=== PATIENT | female | born 1940 | race Caucasian/White ===

== ENCOUNTER 2016-07-11 10:44 | Observation (INO) | payer BC, MEDICARE ==
[2016-07-11] MEDS ORDERED: ASPIRIN 81 MG TABLET, CHEWABLE PO ONE (11:11)
--- NOTE | 2016-07-11 11:26 | ER Document Report ---
ED Medical Screen (RME) - General Mode of Arrival: Ambulatory Information source: Patient TRAVEL OUTSIDE OF THE U.S[place] IN LAST 30 DAYS: No - HPI Patient complains to provider of: Left upper extremity pain Onset: Other - 3-4 weeks ago Onset/Duration: Intermittent Associated Symptoms: Other - see notes above <CLAUDIA CARLIN - Last Filed: 07/11/16 11:11> <SUE SHELDON - Last Filed: 07/11/16 13:25> - General Chief Complaint: Arm Pain Stated Complaint: LEFT ARM PAIN Notes: 76 year old female with history of an KS and 2 stents (2012) presents to the ED complaining of left upper extremity pain from her left shoulder to her left hand that has been intermitted for the past 3-4 weeks. Patient reports that she last felt the pain around 0800 this morning. Patient called her [facility] in [place] and was advised to come to the ED. Patient denies any recent exertion with her left upper extremity. Patient denies chest pain or shortness of breath. Patient explains that 4 years ago when she had her KS she did not have any CP, but left shoulder pain that radiated to her left jaw. (CLAUDIA CARLIN) - Related Data Allergies/Adverse Reactions: azithromycin [Azithromycin] Allergy (Verified 07/11/16 10:47) Penicillins Allergy (Verified 07/11/16 10:47) Home Medications: Current Home Medications Aspirin [Aspirin EC] 81 mg PO DAILY 07/11/16 [History] Atorvastatin Calcium 10 mg PO DAILY 07/11/16 [History] Cyanocobalamin (Vitamin B-12) [Vitamin B12] mcg PO 07/11/16 [History] Losartan Potassium 100 mg PO DAILY 07/11/16 [History] Metoprolol Succinate 25 mg PO DAILY 07/11/16 [History] Past Medical History - General Information source: Patient - Past Medical History Cardiac Medical History: Reports: Hx Heart Attack - 2012, Hx Hypertension Renal/ Medical History: Denies: Hx Peritoneal Dialysis Past Surgical History: Reports: Hx Cardiac Catheterization - stent x2 2012, Hx Cholecystectomy - Immunizations Hx Diphtheria, Pertussis, Tetanus Vaccination: Yes <CLAUDIA CARLIN - Last Filed: 07/11/16 11:11> Review of Systems - Review of Systems Constitutional: No symptoms reported EENT: No symptoms reported Cardiovascular: No symptoms reported. denies: Chest pain Respiratory: No symptoms reported. denies: Short of breath Gastrointestinal: No symptoms reported Genitourinary: No symptoms reported Female Genitourinary: No symptoms reported Musculoskeletal: See HPI, Other - left shoulder pain that radiates down to left hand. Skin: No symptoms reported Hematologic/Lymphatic: No symptoms reported Neurological/Psychological: No symptoms reported -: Yes All other systems reviewed and negative <CLAUDIA CARLIN - Last Filed: 07/11/16 11:11> Physical Exam - General General appearance: Alert In distress: None - Respiratory Respiratory status: No respiratory distress - Extremities General upper extremity: Normal ROM. No: Normal inspection - see arm exam below General lower extremity: Normal inspection, Normal ROM Arm: Tender - reproducible tenderness to palpation over the left tricep and proximal bicep.. No: Normal <CLAUDIA CARLIN - Last Filed: 07/11/16 11:11> Course <CLAUDIA CARLIN - Last Filed: 07/11/16 11:11> - Laboratory Result Diagrams: 07/11/16 11:47 07/11/16 11:47 <SUE SHELDON - Last Filed: 07/11/16 13:25> - Re-evaluation Re-evalutation: 07/11/16 13:15 I personally performed the services described in the documentation, reviewed and edited the documentation which was dictated to the scribe in my presence, and it accurately records my words and actions. (SUE SHELDON) - Vital Signs Vital signs: Temp Pulse Resp BP Pulse Ox 99.3 F 90 17 124/55 L 95 07/11/16 10:49 07/11/16 10:49 07/11/16 12:01 07/11/16 12:01 07/11/16 12:01 - Laboratory Laboratory results interpreted by me: 07/11/16 07/11/16 11:47 11:47 RDW 14.1 H BUN 23 H Glucose 115 H Total Bilirubin 1.8 H Scribe Documentation - Scribe Written by Scribe:: Judy Freedman, 07/11/2016 1132 acting as scribe for :: Ko <CLAUDIA CARLIN - Last Filed: 07/11/16 11:11>
[2016-07-11 11:58] LABS: ABSOLUTE BASOPHILS # (AUTO) 0.1 10^3/uL (0.0-0.2); ABSOLUTE EOSINOPHILS # (AUTO) 0.1 10^3/uL (0.0-0.6); ABSOLUTE LYMPHOCYTES (AUTO) 1.1 10^3/uL (0.5-4.7); ABSOLUTE MONOCYTES (AUTO) 0.4 10^3/uL (0.1-1.4); ABSOLUTE NEUT (AUTO) 4.7 10^3/uL (1.7-8.2); BASOPHILS % (AUTO) 1.1 % (0-2); EOSINOPHILS % (AUTO) 1.1 % (0-6); HEMOGLOBIN 13.8 g/dL (12.0-15.5); HGB HCT DIFFERENCE 0.4; LYMPHOCYTES % (AUTO) 17.9 % (13-45); MEAN CORPUSCULAR HEMOGLOBIN 28.5 pg (27.0-33.4); MEAN CORPUSCULAR HGB CONC 33.6 g/dL (32.0-36.0); MEAN CORPUSCULAR VOLUME 85 fl (80-97); MONOCYTES % (AUTO) 6.5 % (3-13); RED BLOOD COUNT 4.82 10^6/uL (3.72-5.28); RED CELL DISTRIBUTION WIDTH 14.1 % (11.5-14.0); SEGMENTED NEUTROPHILS % (AUTO) 73.4 % (42-78); WHITE BLOOD COUNT 6.3 10^3/uL (4.0-10.5)
[2016-07-11 12:04] LABS: PROTHROMBIN TIME 12.4 SEC (11.4-15.4)
--- NOTE | 2016-07-11 12:10 | ER Document Report ---
ED General - General Chief Complaint: Arm Pain Stated Complaint: LEFT ARM PAIN Mode of Arrival: Ambulatory Information source: Patient Notes: 76-year-old female history of [place] to previous cardiac stents presents with complaints of left arm pain going down for 2-3 minutes at a time intermittently over the past 2 weeks. Patient denies any shortness breath difficult to breathing admits to one episode of nausea as well as swelling patient is followed by cardiology in the burn Dr. Mejia TRAVEL OUTSIDE OF THE [place].S[place] IN LAST 30 DAYS: No - HPI Onset: Other Onset/Duration: Intermittent Quality of pain: Achy Severity: Mild Pain Level: 1 Associated symptoms: Other Exacerbated by: Denies Relieved by: Denies Similar symptoms previously: No Recently seen / treated by doctor: No - Related Data Allergies/Adverse Reactions: azithromycin [Azithromycin] Allergy (Verified 07/11/16 10:47) Penicillins Allergy (Verified 07/11/16 10:47) Home Medications: Current Home Medications Aspirin [Aspirin EC] 81 mg PO DAILY 07/11/16 [History] Atorvastatin Calcium 10 mg PO DAILY 07/11/16 [History] Cyanocobalamin (Vitamin B-12) [Vitamin B12] mcg PO 07/11/16 [History] Losartan Potassium 100 mg PO DAILY 07/11/16 [History] Metoprolol Succinate 25 mg PO DAILY 07/11/16 [History] Past Medical History - General Information source: Patient - Social History Smoking Status: Never Smoker Cigarette use (# per day): No Chew tobacco use (# tins/day): No Smoking Education Provided: No Family History: Reviewed & Not Pertinent Patient has suicidal ideation: No Patient has homicidal ideation: No - Past Medical History Cardiac Medical History: Reports: Hx Heart Attack - 2012, Hx Hypertension Renal/ Medical History: Denies: Hx Peritoneal Dialysis Past Surgical History: Reports: Hx Cardiac Catheterization - stent x2 2012, Hx Cholecystectomy - Immunizations Hx Diphtheria, Pertussis, Tetanus Vaccination: Yes Hx Pneumococcal Vaccination: 04/09/10 Review of Systems - Review of Systems Notes: REVIEW OF SYSTEMS: CONSTITUTIONAL : admits to diaphoresis EENT: Denies eye, ear, throat, or mouth pain or symptoms. Denies nasal or sinus congestion or discharge. Denies throat, tongue, or mouth swelling or difficulty swallowing. CARDIOVASCULAR: Denies chest pain. Denies palpitations or racing or irregular heart beat. Denies ankle edema. RESPIRATORY: Denies cough, cold, or chest congestion. Denies shortness of breath, difficulty breathing, or wheezing. GASTROINTESTINAL: admits to nausea GENITOURINARY: Denies difficulty urinating, painful urination, burning, frequency, blood in urine, or discharge. FEMALE GENITOURINARY: Denies vaginal bleeding, heavy or abnormal periods, irregular periods. Denies vaginal discharge or odor. MUSCULOSKELETAL: Denies back or neck pain or stiffness. Denies joint pain or swelling. SKIN: Denies rash, lesions or sores. HEMATOLOGIC : Denies easy bruising or bleeding. LYMPHATIC: Denies swollen, enlarged glands. NEUROLOGICAL: left arm pain PSYCHIATRIC: Denies anxiety or stress. Denies depression, suicidal ideation, or homicidal ideation. ALL OTHER SYSTEMS REVIEWED AND NEGATIVE. Dictation was performed using [email or web address] voice recognition software PHYSICAL EXAMINATION: GENERAL: Well-appearing, well-nourished and in no acute distress. HEAD: Atraumatic, normocephalic. EYES: Pupils equal round and reactive to light, extraocular movements intact, sclera anicteric, conjunctiva are normal. ENT: Nares patent, oropharynx clear without exudates. Moist mucous membranes. NECK: Normal range of motion, supple without lymphadenopathy LUNGS: Breath sounds clear to auscultation bilaterally and equal. No wheezes rales or rhonchi. HEART: Regular rate and rhythm without murmurs ABDOMEN: Soft, nontender, nondistended abdomen. No guarding, no rebound. No masses appreciated. Musculoskeletal: Normal range of motion, no pitting or edema. No cyanosis. NEUROLOGICAL: Cranial nerves grossly intact. Normal speech, normal gait. Normal sensory, motor exams PSYCH: Normal mood, normal affect. SKIN: Warm, Dry, normal turgor, no rashes or lesions noted. Physical Exam - Vital signs Vitals: Temp Pulse Resp BP Pulse Ox 99.3 F 90 20 156/72 H 98 07/11/16 10:49 07/11/16 10:49 07/11/16 10:49 07/11/16 10:49 07/11/16 10:49 Course - Re-evaluation Re-evalutation: 07/11/16 12:10 Lab work imaging pending 07/11/16 13:26 Lab work imaging note no significant abnormality, patient will require an ACS rule out as she is otherwise stable. Patient admitted to hospitalist service with repeat enzymes expected patient has received full dose aspirin - Vital Signs Vital signs: Temp Pulse Resp BP Pulse Ox 99.3 F 90 17 124/55 L 95 07/11/16 10:49 07/11/16 10:49 07/11/16 12:01 07/11/16 12:01 07/11/16 12:01 - Laboratory Result Diagrams: 07/11/16 11:47 07/11/16 11:47 Laboratory results interpreted by me: 07/11/16 07/11/16 11:47 11:47 RDW 14.1 H BUN 23 H Glucose 115 H Total Bilirubin 1.8 H - Diagnostic Test Radiology reviewed: Image reviewed, Reports reviewed - EKG Interpretation by Me EKG shows normal: Sinus rhythm, [place], Intervals, QRS Complexes Discharge - Discharge Clinical Impression: Pain of left upper extremity Coronary artery disease Qualifiers: Coronary Disease-Associated Artery/Lesion type: unspecified vessel or lesion type [place] vs. transplanted heart: [place] heart Associated angina: without angina Qualified Code(s): I25.10 - Atherosclerotic heart disease of [place] coronary artery without angina pectoris Condition: Stable Disposition: ADMITTED OBSERVATION Admitting Provider: Hospitalist Unit Admitted: Telemetry
[2016-07-11 12:23] LABS: ALANINE AMINOTRANSFERASE 29 U/L (9-52); ALKALINE PHOSPHATASE 105 U/L (38-126); ANION GAP 14 (5-19); ASPARTATE AMINO TRANSFERASE 23 U/L (14-36); BILIRUBIN,DIRECT 0.2 mg/dL (0.0-0.4); BILIRUBIN,TOTAL 1.8 mg/dL (0.2-1.3); BLOOD UREA NITROGEN 23 mg/dL (7-20); CALCIUM 9.4 mg/dL (8.4-10.2); CARBON DIOXIDE 23 mmol/L (22-30); CHLORIDE 103 mmol/L (98-107); CREATINE KINASE 73 U/L (30-135); CREATININE RESULT 0.87 mg/dL (0.52-1.25); GLUCOSE 115 mg/dL (75-110); POTASSIUM 4.6 mmol/L (3.6-5.0); TOTAL PROTEIN 6.8 g/dL (6.3-8.2)
[2016-07-11 12:35] LABS: CREATINE KINASE MB 0.64 ng/mL (<4.55)
[2016-07-11 12:36] LABS: TROPONIN I < 0.012 ng/mL
--- NOTE | 2016-07-11 13:11 | EKG REPORT ---
SEVERITY:- ABNORMAL ECG - SINUS RHYTHM LEFT ANTERIOR FASCICULAR BLOCK : Confirmed by: Rebeka Tucker MD 11-Jul-2016 13:09:33
--- NOTE | 2016-07-11 17:08 | PDOC H&P ---
History of Present Illness Admission Date/PCP: 07/11/16 13:51 Dr. Jose Villa Outpatient mainframe systems programmer: Dr. Bertrand Patient complains of: Left arm pain History of Present Illness: FATMATA WORKMAN is a 76 year old female with a past medical history of coronary artery disease. She presented to the emergency department with a chief complaint of left arm pain. The patient has a history of [place] to previous cardiac stents presents with complaints of left arm pain going down for 2-3 minutes at a time intermittently over the past 2 weeks. The patient also admits to intermittent nausea. Patient denies any shortness breath difficult to breathing admits to one episode of nausea as well as swelling patient is followed by cardiology in the burn Dr. Mejia. The patient last had a nuclear stress test 6 months ago. The patient's last heart catheterization was in 2012 when she was stented. MEDICATIONS: The medications listed in this document may have been auto- populated from previous contact and may not been verified or reconciled. This may not be an accurate reflection of the patient's home medication(s); however, authors are unable to edit or delete the medications listed in this document as "home medications". Past Medical History Cardiac Medical History: Reports: Myocardial Infarction - 2013, Hyperlipidema, Hypertension Past Surgical History Past Surgical History: Reports: Cardiac Catheterization - stent x2 2013, Cholecystectomy Social History Information Source: Patient Occupation: Retired Lives with: Alone Smoking Status: Current Every Day Smoker Cigarettes Packs Per Day: 0.3 Frequency of Alcohol Use: None Hx Recreational Drug Use: No Drugs: None Hx Prescription Drug Abuse: No - Advance Directive Resuscitation Status: Full Code Surrogate healthcare decision maker:: Salena Workman Family History Family History: CAD, Hypertension Parental Family History Reviewed: Yes Children Family History Reviewed: Yes Sibling(s) Family History Reviewed.: Yes Medication/Allergy Home Medications: Aspirin [Aspirin EC] 81 mg PO DAILY 07/11/16 Atorvastatin Calcium 10 mg PO DAILY 07/11/16 Cyanocobalamin (Vitamin B-12) [Vitamin B12] mcg PO 07/11/16 Losartan Potassium 100 mg PO DAILY 07/11/16 Metoprolol Succinate 25 mg PO DAILY 07/11/16 Allergies/Adverse Reactions: azithromycin [Azithromycin] Allergy (Verified 07/11/16 10:47) Penicillins Allergy (Verified 07/11/16 10:47) Review of Systems Constitutional: ABSENT: chills, fever(s), headache(s), weight gain, weight loss Eyes: ABSENT: visual disturbances Ears: ABSENT: hearing changes Cardiovascular: ABSENT: chest pain, dyspnea on exertion, edema, orthropnea, palpitations Respiratory: ABSENT: cough, hemoptysis Gastrointestinal: PRESENT: nausea. ABSENT: abdominal pain, constipation, diarrhea, hematemesis, hematochezia, vomiting Genitourinary: ABSENT: dysuria, hematuria Musculoskeletal: PRESENT: other - Left arm pain. ABSENT: joint swelling Integumentary: ABSENT: rash, wounds Neurological: ABSENT: abnormal gait, abnormal speech, confusion, dizziness, focal weakness, syncope Psychiatric: ABSENT: anxiety, depression, homidical ideation, suicidal ideation Endocrine: ABSENT: cold intolerance, heat intolerance, polydipsia, polyuria Hematologic/Lymphatic: ABSENT: easy bleeding, easy bruising Physical Exam Vital Signs: Temp Pulse Resp BP Pulse Ox 98.3 F 84 17 117/45 L 99 07/11/16 15:30 07/11/16 15:30 07/11/16 15:30 07/11/16 15:30 07/11/16 15:30 General appearance: PRESENT: no acute distress, cooperative, well-developed, well-nourished Head exam: PRESENT: atraumatic, normocephalic Eye exam: PRESENT: conjunctiva pink, EOMI, PERRLA. ABSENT: scleral icterus Ear exam: PRESENT: normal external ear exam Mouth exam: PRESENT: moist, tongue midline Neck exam: ABSENT: carotid bruit, JVD, lymphadenopathy, thyromegaly Respiratory exam: PRESENT: clear to auscultation [place], symmetrical, unlabored. ABSENT: rales, rhonchi, tachypnea, wheezes Cardiovascular exam: PRESENT: RRR. ABSENT: diastolic murmur, rubs, systolic murmur Pulses: PRESENT: normal dorsalis pedis pul Vascular exam: PRESENT: normal capillary refill GI/Abdominal exam: PRESENT: normal bowel sounds, soft. ABSENT: distended, guarding, mass, organolmegaly, rebound, tenderness Rectal exam: PRESENT: deferred Extremities exam: PRESENT: full ROM. ABSENT: calf tenderness, clubbing, pedal edema Neurological exam: PRESENT: alert, awake, oriented to person, oriented to place , oriented to time, oriented to situation, CN II-XII grossly intact. ABSENT: motor sensory deficit Psychiatric exam: PRESENT: appropriate affect, normal mood. ABSENT: homicidal ideation, suicidal ideation Skin exam: PRESENT: dry, intact, warm. ABSENT: cyanosis, rash Results Laboratory Results: Labs- Last Values WBC 6.3 10^3/uL (4.0-10.5) 07/11/16 11:47 RBC 4.82 10^6/uL (3.72-5.28) 07/11/16 11:47 Hgb 13.8 g/dL (12.0-15.5) 07/11/16 11:47 Hct 41.0 % (36.0-47.0) 07/11/16 11:47 MCV 85 fl (80-97) 07/11/16 11:47 MCH 28.5 pg (27.0-33.4) 07/11/16 11:47 MCHC 33.6 g/dL (32.0-36.0) 07/11/16 11:47 RDW 14.1 % (11.5-14.0) H 07/11/16 11:47 Plt Count 236 10^3/uL (150-450) 07/11/16 11:47 Seg Neutrophils % 73.4 % (42-78) 07/11/16 11:47 Lymphocytes % 17.9 % (13-45) 07/11/16 11:47 Monocytes % 6.5 % (3-13) 07/11/16 11:47 Eosinophils % 1.1 % (0-6) 07/11/16 11:47 Basophils % 1.1 % (0-2) 07/11/16 11:47 Absolute Neutrophils 4.7 10^3/uL (1.7-8.2) 07/11/16 11:47 Absolute Lymphocytes 1.1 10^3/uL (0.5-4.7) 07/11/16 11:47 Absolute Monocytes 0.4 10^3/uL (0.1-1.4) 07/11/16 11:47 Absolute Eosinophils 0.1 10^3/uL (0.0-0.6) 07/11/16 11:47 Absolute Basophils 0.1 10^3/uL (0.0-0.2) 07/11/16 11:47 PT 12.4 SEC (11.4-15.4) 07/11/16 11:47 INR 0.90 07/11/16 11:47 Sodium 140.0 mmol/L (137-145) 07/11/16 11:47 Potassium 4.6 mmol/L (3.6-5.0) 07/11/16 11:47 Chloride 103 mmol/L (98-107) 07/11/16 11:47 Carbon Dioxide 23 mmol/L (22-30) 07/11/16 11:47 Anion Gap 14 (5-19) 07/11/16 11:47 BUN 23 mg/dL (7-20) H 07/11/16 11:47 Creatinine 0.87 mg/dL (0.52-1.25) 07/11/16 11:47 Est GFR ( Amer) > 60 (>60) 07/11/16 11:47 Est GFR (Non-Af Amer) > 60 (>60) 07/11/16 11:47 Glucose 115 mg/dL (75-110) H 07/11/16 11:47 Calcium 9.4 mg/dL (8.4-10.2) 07/11/16 11:47 Total Bilirubin 1.8 mg/dL (0.2-1.3) H 07/11/16 11:47 Direct Bilirubin 0.2 mg/dL (0.0-0.4) 07/11/16 11:47 Indirect Bilirubin Not Reportable 07/11/16 11:47 Neonat Total Bilirubin Not Reportable 07/11/16 11:47 AST 23 U/L (14-36) 07/11/16 11:47 ALT 29 U/L (9-52) 07/11/16 11:47 Alkaline Phosphatase 105 U/L (38-126) 07/11/16 11:47 Creatine Kinase 73 U/L (30-135) 07/11/16 11:47 CK-MB (CK-2) 0.64 ng/mL (<4.55) 07/11/16 11:47 Troponin I < 0.012 ng/mL 07/11/16 11:47 Total Protein 6.8 g/dL (6.3-8.2) 07/11/16 11:47 Albumin 4.0 g/dL (3.5-5.0) 07/11/16 11:47 Impressions: Chest X-Ray 07/11/16 11:11 IMPRESSION: NO ACUTE RADIOGRAPHIC FINDING IN THE CHEST. Humerus X-Ray 07/11/16 11:11 IMPRESSION: NO RADIOGRAPHIC EVIDENCE OF ACUTE INJURY. Assessment & Plan - Diagnosis (1) Left arm pain Is this a current diagnosis for this admission?: YesPlan: The patient states that this was the same sensation that she had prior to her previous [place]. Will observe the patient continues telemetry unit, obtain serial cardiac enzymes, repeat EKG, and obtain lipid panel in the a.m. will discuss the case with the patient's mainframe systems programmer. (2) Hyperlipidemia Qualifiers: Hyperlipidemia type: pure hypercholesterolemia Qualified Code(s): E78.00 - Pure hypercholesterolemia, unspecified; E78.0 - Pure hypercholesterolemia Is this a current diagnosis for this admission?: YesPlan: Will continue statin but will increase strength for ACS (3) Hypertension Qualifiers: Hypertension type: essential hypertension Qualified Code(s): I10 - Essential (primary) hypertension Is this a current diagnosis for this admission?: YesPlan: Will continue home medications. (4) Obesity Qualifiers: Obesity type: due to excess calories Obesity severity: non-morbid Qualified Code(s): E66.09 - Other obesity due to excess calories Is this a current diagnosis for this admission?: Yes (5) Coronary artery disease Qualifiers: Coronary Disease-Associated Artery/Lesion type: unspecified vessel or lesion type [place] vs. transplanted heart: [place] heart Associated angina: without angina Qualified Code(s): I25.10 - Atherosclerotic heart disease of [place] coronary artery without angina pectoris Is this a current diagnosis for this admission?: YesPlan: Will continue home medications. (6) DVT prophylaxis Is this a current diagnosis for this admission?: YesPlan: Will start subcutaneous heparin - Time Time Spent: 50 to 70 Minutes Medications reviewed and adjusted accordingly: Yes Anticipated discharge: Home Within: within 24 hours Disposition: The patient is a full code. Pending patient's symptomatology and diagnostic findings will reevaluate in the a.m.
[2016-07-11] MEDS ORDERED: CYCLOBENZAPRINE HCL 10 MG TABLET PO ONE (17:30)
[2016-07-11] MEDS: HEPARIN SOD (PORCINE) 5,000 UNIT/ML 1 ML SYRINGE SUBCUT SCH ×2 (17:43→22:21)
[2016-07-11] MEDS ORDERED: ATORVASTATIN CALCIUM 10 MG TABLET PO SCH (22:00)
[2016-07-11] MEDS ORDERED: ATORVASTATIN CALCIUM 40 MG TABLET PO SCH (22:00)
[2016-07-12 05:45] LABS: CHOLESTEROL 125.41 mg/dL (0-200); Direct HDL 61 mg/dL (>40); TRIGLYCERIDES 118 mg/dL (<150)
[2016-07-12 05:55] LABS: DIRECT LDL 37 mg/dL (<100)
[2016-07-12] MEDS: HEPARIN SOD (PORCINE) 5,000 UNIT/ML 1 ML SYRINGE SUBCUT SCH (06:57)
[2016-07-12] MEDS ORDERED: METOPROLOL SUCCINATE 25 MG TAB.SR.24H PO SCH (10:00)
[2016-07-12] MEDS ORDERED: (PENDING PHARMACY ID) (Losartan Potassium [Losartan Potassium] 100 MG) PO SCH (10:00)
[2016-07-12] MEDS ORDERED: ASPIRIN 81 MG TABLET, ENT COATED PO SCH (10:00)
[2016-07-12] MEDS ORDERED: LOSARTAN POTASSIUM 50 MG TABLET PO SCH (10:00)
[2016-07-12 10:42] VITALS: BP 114/48
--- NOTE | 2016-07-12 16:08 | PDOC DISCHARGE SUMMARY ---
General - Admit/Disc Date/PCP Admission Date/Primary Care Provider: 07/11/16 13:51 Discharge Date: 07/12/16 - Additional Information Resuscitation Status: Full Code Home Medications: Aspirin [Aspirin EC] 81 mg PO DAILY 07/11/16 Atorvastatin Calcium 10 mg PO DAILY 07/11/16 Cyanocobalamin (Vitamin B-12) [Vitamin B12] mcg PO 07/11/16 Losartan Potassium 100 mg PO DAILY 07/11/16 Metoprolol Succinate 25 mg PO DAILY 07/11/16 History of Present Illness Patient complains of: Left arm pain and numbness History of Present Illness: FATMATA WORKMAN is a 76 year old female with a past medical history of coronary artery disease. She presented to the emergency department with a chief complaint of left arm pain. The patient has a history of [place] to previous cardiac stents presents with complaints of left arm pain going down for 2-3 minutes at a time intermittently over the past 2 weeks. The patient also admits to intermittent nausea. Patient denies any shortness breath difficult to breathing admits to one episode of nausea as well as swelling patient is followed by cardiology in the [facility] Dr. Mejia. The patient last had a nuclear stress test 6 months ago. The patient's last heart catheterization was in 2012 when she was stented. Hospital Course Hospital Course: Patient was admitted to the telemetry unit, observation status. Serial troponins were obtained. All troponins were less than 0.02. EKG showed no signs of acute ischemia. Patient had undergone stress testing in the last 6 months by her teacher of the hearing impaired and [facility]. We will therefore not repeat the stress test at this time. Patient would like to follow-up with her teacher of the hearing impaired when she is discharged. Pain most likely is musculoskeletal in origin, at times is reproducible. Physical Exam Vital Signs: Temp Pulse Resp BP Pulse Ox 97.8 F 63 14 114/48 L 100 07/12/16 10:35 07/12/16 10:35 07/12/16 10:35 07/12/16 07:37 07/12/16 10:35 Intake & Output 07/11/16 07/12/16 07/13/16 06:59 06:59 06:59 Intake Total 406 Output Total 2 Balance 404 Weight 81 kg General appearance: PRESENT: no acute distress Head exam: PRESENT: atraumatic, normocephalic Eye exam: PRESENT: conjunctiva pink, EOMI, PERRLA. ABSENT: scleral icterus Ear exam: PRESENT: normal external ear exam Mouth exam: PRESENT: moist, tongue midline Neck exam: ABSENT: carotid bruit, JVD, lymphadenopathy, thyromegaly Respiratory exam: PRESENT: clear to auscultation [place]. ABSENT: rales, rhonchi, wheezes Cardiovascular exam: PRESENT: RRR. ABSENT: diastolic murmur, rubs, systolic murmur Pulses: PRESENT: normal dorsalis pedis pul Vascular exam: PRESENT: normal capillary refill GI/Abdominal exam: PRESENT: normal bowel sounds, soft. ABSENT: distended, guarding, mass, organolmegaly, rebound, tenderness Rectal exam: PRESENT: deferred Extremities exam: PRESENT: full ROM. ABSENT: calf tenderness, clubbing, pedal edema Neurological exam: PRESENT: alert, awake, oriented to person, oriented to place , oriented to time, oriented to situation, CN II-XII grossly intact. ABSENT: motor sensory deficit Psychiatric exam: PRESENT: appropriate affect, normal mood. ABSENT: homicidal ideation, suicidal ideation Skin exam: PRESENT: dry, intact, warm. ABSENT: cyanosis, rash Results Laboratory Results: 07/12/16 04:41 Triglycerides 118 Cholesterol 125.41 LDL Cholesterol Direct 37 VLDL Cholesterol 24.0 HDL Cholesterol 61 07/11/16 07/11/16 17:47 23:47 Troponin I < 0.012 0.027 Impressions: Chest X-Ray 07/11/16 11:11 IMPRESSION: NO ACUTE RADIOGRAPHIC FINDING IN THE CHEST. Humerus X-Ray 07/11/16 11:11 IMPRESSION: NO RADIOGRAPHIC EVIDENCE OF ACUTE INJURY. Qualifiers PATEINT BEING DISCHARGED WITH ANY OF THE FOLLOWING DIAGNOSIS?: No Plan Discharge Plan: Home with family. Follow-up with cardiology next available. Time Spent: Less than 30 Minutes
--- NOTE | 2016-07-12 22:08 | EKG REPORT ---
SEVERITY:- BORDERLINE ECG - SINUS RHYTHM ATRIAL PREMATURE COMPLEX BORDERLINE LEFT AXIS DEVIATION LOW VOLTAGE THROUGHOUT : Confirmed by: Rebeka Tucker MD 12-Jul-2016 22:06:11
== END 2016-07-12 11:06 | disposition home or self-care (01) ==
LOC: ER 10:44 → EH 13:51 → 4N 14:59
PROVIDERS: ADMIT Internal Medicine; ATTEND Internal Medicine
DX: R07.9 Chest pain, unspecified (principal); R20.0 Anesthesia of skin; M79.602 Pain in left arm; I25.10 Atherosclerotic heart disease of native coronary artery without angina pectoris; I25.2 Old myocardial infarction; I10 Essential (primary) hypertension; E78.00 Pure hypercholesterolemia, unspecified; F17.210 Nicotine dependence, cigarettes, uncomplicated; E66.09 Other obesity due to excess calories
CPT/HCPCS: 93005 ×2; 99285; 36415 ×2; 82553; 82550; 85025; 85610; 80053; 84484; 80061; 71020; 73060; 93010 ×2; G0378 ×3; A9270 ×4; J1644 ×2; J3490 ×2

== ENCOUNTER 2017-06-06 01:44 | Emergency (ER) | payer MEDICARE ==
[2017-06-06] MEDS ORDERED: ASPIRIN 81 MG TABLET, CHEWABLE PO ONE (02:12)
--- NOTE | 2017-06-06 02:19 | ER Document Report ---
ED Cardiac - General Chief Complaint: Chest Pain Stated Complaint: CHEST PAINS Time Seen by Provider: 06/06/17 01:51 Notes: Patient is a 76-year-old female who comes emergency department chief complaint of chest pain that started at 11 PM tonight. She states that she was sitting up in bed when she started hurting. She states pain is constant, she feels a little bit of nausea with it, she states pain starts in her left mid chest and goes down to below her left breast. She states she has had very little appetite today as well. She denies vomiting, fever, shortness of breath. She has had a mild cough for a few days. She lives alone, comes from home, states she took 3 nitroglycerin without significant change in her symptoms, she also took 81 mg of aspirin. She does not take a blood thinner. She had a heart attack with 2 stents placed in [place] about 6 years ago. She is a former smoker. She states she thinks she had a stress test over a year ago that was "borderline". She has hypertension, hyperlipidemia, but not diabetes. TRAVEL OUTSIDE OF THE [place] IN LAST 30 DAYS: No - Related Data Allergies/Adverse Reactions: azithromycin [Azithromycin] Allergy (Verified 07/11/16 10:47) Penicillins Allergy (Verified 07/11/16 10:47) Past Medical History - General Information source: Patient - Social History Smoking Status: Former Smoker Frequency of alcohol use: None Drug Abuse: None Lives with: Family Family History: CAD, Hypertension Patient has suicidal ideation: No Patient has homicidal ideation: No - Past Medical History Cardiac Medical History: Reports: Hx Heart Attack - 2012, Hx Hypercholesterolemia, Hx Hypertension Renal/ Medical History: Denies: Hx Peritoneal Dialysis Past Surgical History: Reports: Hx Cardiac Catheterization - stent x2 2012, Hx Cholecystectomy - Immunizations Hx Diphtheria, Pertussis, Tetanus Vaccination: Yes Hx Pneumococcal Vaccination: 04/09/10 Review of Systems - Review of Systems Constitutional: No symptoms reported EENT: No symptoms reported Cardiovascular: See HPI Respiratory: No symptoms reported Gastrointestinal: See HPI Genitourinary: No symptoms reported Female Genitourinary: No symptoms reported Musculoskeletal: See HPI Skin: No symptoms reported Hematologic/Lymphatic: No symptoms reported Neurological/Psychological: No symptoms reported Physical Exam - Vital signs Vitals: Resp 22 H 06/06/17 02:02 Interpretation: Normal - General General appearance: Appears well In distress: None - HEENT Head: Normocephalic, Atraumatic Eyes: Normal Conjunctiva: Normal Extraocular movements intact: Yes Eyelashes: Normal Pupils: PERRL Nasal: Normal Mouth/Lips: Normal Mucous membranes: Normal Pharynx: Normal Neck: Normal - Respiratory Respiratory status: No respiratory distress Chest status: Nontender Breath sounds: Normal. No: Decreased air movement, Wheezing Chest palpation: Normal - Cardiovascular Rhythm: Regular, Extrasystoles - rare. No: Tachycardia Heart sounds: Normal auscultation, S1 appreciated, S2 appreciated Murmur: No Normal capillary refill: Yes - Abdominal Inspection: Normal Distension: No distension Bowel sounds: Normal Tenderness: Tender - minimal generalized upper abdomina ltenderness with no guarding. No: McBurney's point, Dow's sign, Guarding, Rebound - Back Back: Normal, Nontender. No: Tender - Extremities General upper extremity: Normal inspection, Nontender, Normal strength, Normal temperature General lower extremity: Normal inspection, Nontender, Normal strength, Normal temperature. No: Edema - Neurological Neuro grossly intact: Yes Cognition: Normal Orientation: AAOx4 Gepp Coma Scale Eye Opening: Spontaneous Whitney Coma Scale Verbal: Oriented Gepp Coma Scale Motor: Obeys Commands Whitney Coma Scale Total: 15 Speech: Normal Motor strength normal: LUE, RUE, LLE, RLE Sensory: Normal - Psychological Associated symptoms: Normal affect, Normal mood - Skin Skin Temperature: Warm Skin Moisture: Dry Skin Color: Normal Course - Re-evaluation Re-evalutation: Patient does have some chest wall and upper abdominal tenderness, this is very mild, she does not appear to be distress, the tenderness does match the area of patient's description. Atypical symptoms. EKG showing sinus rhythm with a rate of 89, a PVC is present, no T-wave inversions or ST segment changes noted in consecutive leads. Flattened T waves in lead III. Chest x-ray is unremarkable, initial troponin is negative, chemistry and CBC are unremarkable. 06/06/17 03:30 On reevaluation patient states her pain is completely gone, she has no symptoms at this time. Patient had been given the rest of her aspirin dose, she initially took 81 mg, she was given additional 243 milligrams. Blood pressure dips when patient falls asleep. Remaining troponin will cycle. 06/06/17 06:50 2 negative troponins. I discussed telemetry observation and recommended this to patient. Patient refuses, states she wants to go home, see her primary, and follow-up with cardiology. Discussed with family, they are okay with this as long as patient's acoustic sensor operator is contacted, I am in agreement with this plan. I contacted [facility], they state that they will contact cardiology mortgage consultant and call back. 06/06/17 07:00 Called [facility] again, unable to get the acoustic sensor operator call back with multiple pages, will wait until 8 AM when acoustic sensor operator office opens. Family and patient state agreement with this plan. 06/06/17 08:33 Spoke with Ms. Desir, mortgage consultant for Dr. Bertrand, she states that with patients workup and HPI that it is appropriate for her to follow-up today with her primary, call today or have her primary to establish follow-up within the next 2 -3 days, and return if she worsens. Patient and family state satisfaction and agreement. - Vital Signs Vital signs: Temp Pulse Resp BP Pulse Ox 98.5 F 21 H 114/61 95 06/06/17 06:50 06/06/17 07:01 06/06/17 07:01 06/06/17 07:01 - Laboratory Result Diagrams: 06/06/17 02:30 06/06/17 02:30 Laboratory results interpreted by me: 06/06/17 06/06/17 02:30 02:30 Lymphocytes % 11.3 L Sodium 135.2 L Glucose 148 H Total Bilirubin 2.0 H Discharge - Discharge Clinical Impression: Chest pain Qualifiers: Chest pain type: unspecified Qualified Code(s): R07.9 - Chest pain, unspecified Condition: Stable Disposition: HOME, SELF-CARE Additional Instructions: I spoke with Ms. Desir, at this time recommendation is for you to follow-up with your primary care and then call the office of Dr. Bertrand today to set up your close follow-up within this week to have additional management performed. Return for any concerning worsening symptoms including vomiting, fever, shortness of breath, increased pain or any other concerning symptoms. Referrals: NEELA LEE MD [Primary Care Provider] - Follow up as needed
[2017-06-06 02:40] LABS: ABSOLUTE BASOPHILS # (AUTO) 0.1 10^3/uL (0.0-0.2); ABSOLUTE EOSINOPHILS # (AUTO) 0.1 10^3/uL (0.0-0.6); ABSOLUTE LYMPHOCYTES (AUTO) 1.1 10^3/uL (0.5-4.7); ABSOLUTE MONOCYTES (AUTO) 0.9 10^3/uL (0.1-1.4); ABSOLUTE NEUT (AUTO) 7.6 10^3/uL (1.7-8.2); BASOPHILS % (AUTO) 0.6 % (0-2); EOSINOPHILS % (AUTO) 0.8 % (0-6); HEMATOCRIT 38.4 % (36.0-47.0); HEMOGLOBIN 12.9 g/dL (12.0-15.5); LYMPHOCYTES % (AUTO) 11.3 % (13-45); MEAN CORPUSCULAR HEMOGLOBIN 28.6 pg (27.0-33.4); MEAN CORPUSCULAR HGB CONC 33.6 g/dL (32.0-36.0); MEAN CORPUSCULAR VOLUME 85 fl (80-97); MONOCYTES % (AUTO) 9.7 % (3-13); PLATELET COUNT 241 10^3/uL (150-450); RED BLOOD COUNT 4.51 10^6/uL (3.72-5.28); RED CELL DISTRIBUTION WIDTH 13.6 % (11.5-14.0); SEGMENTED NEUTROPHILS % (AUTO) 77.6 % (42-78); TOTAL CELLS COUNTED % (AUTO) 100 %; WHITE BLOOD COUNT 9.8 10^3/uL (4.0-10.5)
--- NOTE | 2017-06-06 02:44 | RADIOLOGY REPORT (SQ) ---
EXAM DESCRIPTION: CHEST SINGLE VIEW CLINICAL HISTORY: 76 years Female, chest pain COMPARISON: July 11, 2016 NUMBER OF VIEWS/TECHNIQUE: 1/AP LIMITATIONS: None. FINDINGS: Normal lung volume, prominent interstitium, clear parenchyma, normal cardiac silhouette, and moderate osteoarthritis. Stable. IMPRESSION: No acute cardiopulmonary findings.
[2017-06-06 02:58] LABS: ALANINE AMINOTRANSFERASE 22 U/L (9-52); ALBUMIN 3.5 g/dL (3.5-5.0); ALKALINE PHOSPHATASE 90 U/L (38-126); ANION GAP 9 (5-19); ASPARTATE AMINO TRANSFERASE 15 U/L (14-36); BILIRUBIN,DIRECT 0.4 mg/dL (0.0-0.4); BLOOD UREA NITROGEN 16 mg/dL (7-20); CALCIUM 8.9 mg/dL (8.4-10.2); CARBON DIOXIDE 23 mmol/L (22-30); CHLORIDE 103 mmol/L (98-107); CREATINE KINASE 68 U/L (30-135); GLUCOSE 148 mg/dL (75-110); LIPASE 179.3 U/L (23-300); POTASSIUM 4.4 mmol/L (3.6-5.0); SODIUM 135.2 mmol/L (137-145); TOTAL PROTEIN 6.3 g/dL (6.3-8.2)
[2017-06-06 03:12] LABS: CREATINE KINASE MB 0.67 ng/mL (<4.55); TROPONIN I < 0.012 ng/mL
--- NOTE | 2017-06-06 07:57 | EKG REPORT ---
SEVERITY:- ABNORMAL ECG - SINUS RHYTHM VENTRICULAR PREMATURE COMPLEX LAD, CONSIDER LEFT ANTERIOR FASCICULAR BLOCK VS OLD INFERIOR-POSTERIOR NC LOW VOLTAGE IN FRONTAL LEADS : Confirmed by: Brian Yu MD 06-Jun-2017 07:57:13
[2017-06-06 08:34] VITALS: BP 119/56
== END 2017-06-06 08:39 | disposition home or self-care (01) ==
LOC: ER 01:44
DX: R07.9 Chest pain, unspecified (principal); R11.0 Nausea; R63.0 Anorexia; I25.2 Old myocardial infarction; I10 Essential (primary) hypertension; E78.5 Hyperlipidemia, unspecified; Z87.891 Personal history of nicotine dependence
CPT/HCPCS: 93005; 99285; 36415; 82553; 82550; 83690; 85025; 80053; 84484; 71045; 93010; A9270